=== PATIENT | female | born 1975 | race Caucasian/White ===

== ENCOUNTER 2016-10-31 08:13 | Emergency (ER) | payer OTHER ==
[2016-10-31 08:20] VITALS: BP 119/77
[2016-10-31] MEDS ORDERED: Lidocaine 1% MPF* 2 ML VIAL ONE (08:37)
--- NOTE | 2016-10-31 08:56 | UC ---
Hayes Payan Angela, scribed for IsadoraArsalan neal MD on 10/31/16 at 0826 . Skin Complaint HPI - HPI Summary HPI Summary: In Room Note: This pt is a 41 y/o female presenting to [facility] c/o erythematous chin x3 days, growing in size and becoming more tender in the past days. She notes it started as a pimple 3 days ago. Pt reports her jaw was numb and sore yesterday. She denies fever, chills, cough, cold symptoms. MDs Note: Vital signs are stable, afebrile, 6/10 discomfort from sore on jaw. Visit history: not contributory. No allergies. Nurses Note: Couple days ago chin became red and sore, with small scab-like area in middle. States yesterday jaw was numb from it. - History of Current Complaint Chief Complaint: UCSkin Stated Complaint: SKIN COMPLAINT Hx Obtained From: Patient Hx Last Menstrual Period: mirena Onset/Duration: Lasting Days Pain Intensity: 6 Pain Scale Used: 0-10 Numeric Location: Other - middle of chin Character: Redness Aggravating: Nothing Alleviating: Nothing Associated Signs & Symptoms: Positive: Numbness - and sore jaw. Negative: Fever , Chills, Cough, Rash - Allergy/Home Medications Allergies/Adverse Reactions: Allergies Allergy/AdvReac Type Severity Reaction Status Date / Time No Known Allergies Allergy Verified 10/31/16 08:16 Home Medications: Home Medications Levonorgestrel (Iud) [Mirena IUD] 10/31/16 [History] Review of Systems Constitutional: Negative Skin: Other - redness on chin Eyes: Negative ENT: Other - sore and swollen jaw Respiratory: Negative Cardiovascular: Negative Gastrointestinal: Negative Genitourinary: Negative Motor: Negative Neurovascular: Negative Neurological: Numbness - jaw Psychological: Negative All Other Systems Reviewed And Are Negative: Yes PMH/Surg Hx/FS Hx/Imm Hx Other Endocrine History: DENIES: diabetes Other Cardiovascular History: DENIES: HTN - Surgical History Surgical History: Yes Surgery Procedure, Year, and Place: Kidney stone. appendix. - Family History Known Family History: Negative: Cardiac Disease, Hypertension, Diabetes - Social History Occupation: Employed Full-time - [employer] Alcohol Use: Occasionally Substance Use Type: None Smoking Status (MU): Never Smoked Tobacco Physical Exam Triage Information Reviewed: Yes Vital Signs: Initial Vital Signs Temp 98.7 F 10/31/16 08:17 Pulse 81 10/31/16 08:17 Resp 18 10/31/16 08:17 BP 119/77 10/31/16 08:17 Pulse Ox 100 10/31/16 08:17 Vital Signs Reviewed: Yes - Additional Comments The patient is well-nourished in no acute distress and in no acute pain. The skin is warm and dry. SKIN EXAM OF THE CENTER OF THE CHIN: OBVIOUS CELLULITIS WITH A PIMPLE AT ITS CENTER, MODERATE ERYTHEMA AND 1 CM ROSEBUD AROUND THE PIMPLE WITH DECREASED ERYTHEMA. THERE IS SOME MILD ERYTHEMA OVER THE LEFT MANDIBLE, NOT EXTENDING TO THE ANGLE OF THE JAW. THERE IS SOME SLIGHT LEFT ANTERIOR TENDERNESS UNDER THE CHIN, BUT NO EVIDENCE OF NECK SPACE INFECTION. THE REMAINDER OF THE SKIN EXAM IN WITHIN NORMAL LIMITS. HEENT: The head is normocephalic and atraumatic. The pupils are equal and reactive. The conjunctivae are clear and without drainage. Nares are patent and without drainage. Mouth reveals moist mucous membranes and the throat is without erythema and exudate. The external ears are intact. The ear canals are patent and without drainage. The tympanic membranes are intact. Neck is supple with full range of motion and non-tender. THERE IS NO POSTERIOR OR ANTERIOR ADENOPATHY. Respiratory: Chest is non-tender. Lungs are clear to auscultation and breath sounds are symmetrical and equal. Cardiovascular: Hear is regular rate and rhythm. There is no murmur or rub auscultated. There is no peripheral edema and pulses are symmetrical and equal. Abdomen: The abdomen is soft and non-tender. There are normal bowel sounds heard in all four quadrants and there is no organomegaly palpated. Musculoskeletal: There is no back pain noted. Extremities are non-tender with full range of motion. There is good capillary refill. There is no peripheral edema or calf tenderness elicited. Neurological: Patient is alert and oriented to person, place and time. The patient has symmetrical motor strength in all four extremities. Psychiatric: The patient has an appropriate affect and does not exhibit any anxiety or depression. Course/Dx - Course Course Of Treatment: On skin exam, THERE IS AN OBVIOUS CELLULITIS WITH A PIMPLE AT ITS CENTER, MODERATE ERYTHEMA AND 1 CM ROSEBUD AROUND THE PIMPLE WITH DECREASED ERYTHEMA. THERE IS SOME MILD ERYTHEMA OVER THE LEFT MANDIBLE, NOT EXTENDING TO THE ANGLE OF THE JAW. THERE IS SOME SLIGHT LEFT ANTERIOR TENDERNESS UNDER THE CHIN, BUT NO EVIDENCE OF NECK SPACE INFECTION. THE REMAINDER OF THE SKIN EXAM IN WITHIN NORMAL LIMITS. THERE IS NO POSTERIOR OR ANTERIOR ADENOPATHY. An incision and drainage procedure was performed. The area was prepped and an 11 blade was used to unroof the pustule. A small amount of pus, approximately 2 drops, was removed. The area around the pustule was indurated with no evidence of extending abscess. The pus was cultured. MDM: I discussed with the pt the use of warm, moist heat frequently over the next 2 days. The pt was started on Keflex, pending culture. Patient has been given an antibiotic because of findings on physical examination and health history. The risks and benefits of antibiotic treatment have been discussed and patient has voiced understanding of these risks including the possibility of developing clostridium difficile enterocolitis. Medications have been included in the original chart and reviewed. Normal BP reading and no follow-up instructions required. - Differential Diagnoses - Skin Complaint Differential Diagnoses: Other - Cellulitis of the chin vs abscess - Diagnoses Provider Diagnoses: Localized cellulitis of the chin Procedures - Incision and Drainage Site: middle of the chin Instrument(s): Other - Pustule was unroofed with an 11 blade. A small amount of pus, approximately 2 drops, was removed. The area around the pustule was indurated with no evidence of extending abscess. The pus was cultured. Discharge - Discharge Plan Condition: Stable Disposition: HOME Prescriptions: Cephalexin CAP* [Keflex CAP*] 500 mg PO TID #30 cap MDD 3 Patient Education Materials: Cellulitis (ED) Referrals: No Primary Care Phys,NOPCP [Primary Care Provider] - Additional Instructions: Thank you for helping us improve patient care by filling out the My Point Survey. WE DISCUSSED: 1. You have a skin infection. We will check a culture on the pus that came out to make sure you're on the right antibiotic. 2. Take the pills 3 times a day for 10 days. 3. warm moist heat to area. 4. clean morning and night with hot soapy water and use antibiotic ointment. 5. GO TO ED FOR SPREADING REDNESS, PAIN, SWELLING OR TEMPERATURE. THIS INFECTION SHOULDN'T SPREAD TO YOUR NECK OR UP YOUR FACE. 6. CALL US FOR ANY QUESTIONS OR CONCERNS. RE CHECK IN 2 DAYS IF IT DOESN'T LOOK IF THIS IS IMPROVING OR TOMORROW IF YOU DEVELOP A TEMPERATURE. The documentation as recorded by the Hayes hurley Angela accurately reflects the service I personally performed and the decisions made by me, Arsalan Torres MD.
--- NOTE | 2016-10-31 17:22 | UC ---
Progress - Progress Note Progress Note: PLS CALL PT AND ADVISE THAT PRELIMINARY WOUND CULTURE GREW MRSA. CONTINUE KEFLEX PRESCRIBED AND ALSO START BACTRIM TWICE DAILY X 10 DAYS. ERX SENT TO [facility] - FEI VERA MD
== END 2016-10-31 09:26 | disposition home or self-care (01) ==
LOC: UCEAST 08:13
DX: L03.211 Cellulitis of face (principal); B95.62 Methicillin resistant Staphylococcus aureus infection as the cause of diseases classified elsewhere; R20.0 Anesthesia of skin
CPT/HCPCS: 87070; 87077; 87186; 87205; 87640; 87641; 99212; G0463

== ENCOUNTER 2016-10-31 21:28 | Emergency (ER) | payer OTHER ==
[2016-10-31] MEDS ORDERED: Ibuprofen TAB* 800 MG PO ONE (22:24)
[2016-10-31] MEDS ORDERED: DOXYcycline CAP(*) 100 MG PO ONE (22:24)
[2016-10-31] MEDS ORDERED: Sulfamethox/Trimethoprim DS 800/160* TAB PO ONE (22:29)
--- NOTE | 2016-10-31 22:37 | ED ---
Skin Complaint - HPI Summary HPI Summary: Pt here w/ chin infection and pain x 2-3 days. She was seen at earlier today - small pustule opened by Dr. Potter - d/c collected and returned + MRSA. Pt was notified by phone and bactrim sent to pharmacy but this is closed and pain worse so she came here. Pain in chin is radiating back into ears - she has not taken anything for this yet. Denies fever, chills, nausea, vomiting. Reduced appetite. Denies difficulty breathing or swallowing. - History of Current Complaint Chief Complaint: EDRashSkinAbscess Time Seen by Provider: 10/31/16 22:15 Stated Complaint: DX MRSA ON CHIN Hx Obtained From: Patient Hx Last Menstrual Period: mirena Pain Intensity: 9 - Allergy/Home Medications Allergies/Adverse Reactions: Allergies Allergy/AdvReac Type Severity Reaction Status Date / Time No Known Allergies Allergy Verified 10/31/16 21:30 PMH/Surg Hx/FS Hx/Imm Hx Previously Healthy: Yes Endocrine/Hematology History: Denies: Autoimmune Disease - Surgical History Surgery Procedure, Year, and Place: Kidney stone. appendix. - Immunization History Immunizations Up to Date: Yes Infectious Disease History: Yes Infectious Disease History: Reports: Hx of Known/Suspected MRSA Denies: Traveled Outside the [place] in Last 30 Days - Family History Known Family History: Negative: Cardiac Disease, Hypertension, Diabetes - Social History Alcohol Use: Occasionally Hx Substance Use: No Substance Use Type: Reports: None Hx Tobacco Use: No Smoking Status (MU): Never Smoked Tobacco Review of Systems Constitutional: Negative Eyes: Negative Negative: Photophobia, Blurred Vision, Diplopia, Drainage, Erythema ENT: Other - see HPI Negative: Dental Pain, Sore Throat, Nasal Discharge Cardiovascular: Negative Negative: Chest Pain Respiratory: Negative Negative: Shortness Of Breath Gastrointestinal: Other - see HPI Positive: no symptoms reported Skin: Other - see HPI Positive: Headache Psychological: Normal All Other Systems Reviewed And Are Negative: Yes Physical Exam Triage Information Reviewed: Yes Vital Signs On Initial Exam: Initial Vitals Temp Pulse Resp BP Pulse Ox 99.3 F 89 16 140/87 99 10/31/16 21:32 10/31/16 21:32 10/31/16 21:32 10/31/16 21:32 10/31/16 21:32 Vital Signs Reviewed: Yes Appearance: Positive: Well-Nourished, Ill-Appearing - appears mildly fatigued Skin: Positive: Warm - warm, erythematous, shiny chin with central open superficial wound Head/Face: Positive: Normal Head/Face Inspection Eyes: Positive: Normal, EOMI, Conjunctiva Clear. Negative: Conjunctiva Inflammed, Discharge ENT: Positive: Normal ENT inspection, Hearing grossly normal, Pharynx normal, TMs normal. Negative: Nasal congestion, Nasal drainage, Tonsillar swelling, Tonsillar exudate Neck: Positive: Supple, Nontender, No Lymphadenopathy Respiratory/Lung Sounds: Positive: Clear to Auscultation, Breath Sounds Present Cardiovascular: Positive: Normal Musculoskeletal: Positive: Normal, Strength/ROM Intact Neurological: Positive: Normal, Sensory/Motor Intact, Alert, Oriented to Person Place, Time, CN Intact II-III Psychiatric: Positive: Normal - concerned but calm and cooperative Diagnostics - Vital Signs Vital Signs Temp Pulse Resp BP Pulse Ox 10/31/16 22:19 100.4 F 80 10/31/16 21:32 99.3 F 89 16 140/87 99 - Laboratory Lab Statement: Any lab studies that have been ordered have been reviewed, and results considered in the medical decision making process. Course/Dx - Diagnoses Provider Diagnoses: MRSA cellulitis Discharge - Discharge Plan Condition: Stable Disposition: HOME Patient Education Materials: MRSA (Methicillin-Resistant Staphylococcus Aureus ) (ED), Cellulitis (ED) Referrals: No Primary Care Phys,NOPCP [Primary Care Provider] - Additional Instructions: Wash area 2 x day with anti-bacterial soap and water - rinse well and pat dry - then apply mupirocin ointment You may also apply a warm wet compress followed by mupirocin ointment Complete your antibiotics as directed You may take ibuprofen with food for pain, swelling Follow-up with PCP this week to recheck wound - call Wednesday to schedule an appointment *If you have difficulty swallowing, breathing or opening your jaw, return to ED
[2016-10-31 23:06] VITALS: BP 125/70
[2016-11-01] MEDS ORDERED: Mupirocin 2% OINT* TUBE TOPICAL ONE (22:25)
== END 2016-11-01 00:04 | disposition home or self-care (01) ==
LOC: ED 21:28
DX: L03.211 Cellulitis of face (principal); B95.62 Methicillin resistant Staphylococcus aureus infection as the cause of diseases classified elsewhere
CPT/HCPCS: 99281; A9270-GY

== ENCOUNTER 2016-12-03 10:57 | Emergency (ER) | payer OTHER ==
[2016-12-03 12:59] VITALS: BP 116/65
--- NOTE | 2016-12-03 14:20 | RAD ---
HISTORY: Right ankle pain COMPARISONS: None VIEWS: 3, Frontal, lateral, and oblique views of the right ankle FINDINGS: BONE DENSITY: Normal. BONES: There is no displaced fracture. There are calcaneal enthesophytes. JOINTS: There is no arthropathy. ALIGNMENT: There is no dislocation. SOFT TISSUES: There is circumferential soft tissue swelling. OTHER FINDINGS: None. IMPRESSION: SOFT TISSUE SWELLING. NO ACUTE OSSEOUS INJURY. IF SYMPTOMS PERSIST, RECOMMEND REPEAT IMAGING.
== END 2016-12-03 14:16 | disposition home or self-care (01) ==
LOC: UCEAST 10:57
DX: L03.115 Cellulitis of right lower limb (principal); X58.XXXA Exposure to other specified factors, initial encounter
CPT/HCPCS: 99212; G0463

== ENCOUNTER 2016-12-05 17:42 | Emergency (ER) | payer OTHER ==
[2016-12-05] MEDS ORDERED: Vancomycin(*) 1,000 MG in NS 0.9% 250 ML* 250 ML IVPB ONE (19:44)
--- NOTE | 2016-12-05 20:32 | ED ---
Skin Complaint - HPI Summary HPI Summary: Patient presents to the ED with right medial ankle erythema x 2 days. She notes to pain and swelling prior to the erythema. [facility] with dx of cellulitis and sent home with clindamycin. The area was marked to allow for evaluation of worsening infection. [facility] note: At first, the patient felt like she bruised her ankle but the pain never resolved. She visited her PCP, had an XRAY and US, was given an ankle splint, and referred to physical therapy for Nov . The pain and swelling are still present. The patient rates the pain 7/10 in severity. Symptoms aggravated by ambulation and alleviated by Motrin. Patient reports erythema over right ankle but denies recent injury and calf pain. PMHx includes MRSA in chin 1 month ago. Currently, the patient states the area has worsened with redness, swelling and pain. Pain is worse in the morning and she has been unable to ambulate well and without motrin. She denies fevers, sweats or chills. Hx includes MRSA several months ago on the chin. She denies any bug bites, or open wound which could have caused the cellulitis. Denies trauma or injury to the ankle. 2 xrays taken of the ankle with no signs of osteomyelitis. Last xray 2 days ago. - History of Current Complaint Chief Complaint: EDExtremityLower Time Seen by Provider: 12/05/16 18:33 Stated Complaint: RT ANKLE SWELLING Hx Obtained From: Patient Hx Last Menstrual Period: IUD- doesn't get Onset/Duration: Started Days Ago Skin Exposure Onset/Duration: Days Ago Timing: Constant Onset Severity: Worse Since: - 2 days ago Current Severity: Moderate Pain Intensity: 7 Pain Scale Used: 0-10 Numeric Skin Location: Other: - ankle Character: Swelling, Pain, Redness, Painful Aggravating Symptom(s): Nothing Alleviating Symptom(s): Nothing Associated Signs & Symptoms: Tenderness, Red Streaks, Joint Swelling - Allergy/Home Medications Allergies/Adverse Reactions: Allergies Allergy/AdvReac Type Severity Reaction Status Date / Time No Known Allergies Allergy Verified 10/31/16 21:30 PMH/Surg Hx/FS Hx/Imm Hx Previously Healthy: Yes - Surgical History Surgery Procedure, Year, and Place: Kidney stone. appendix. - Immunization History Hx Pertussis Vaccination: No Immunizations Up to Date: Unable to Obtain/Confirm Infectious Disease History: Yes - Hx of MRSA on chin x 5 months ago Infectious Disease History: Reports: Hx of Known/Suspected MRSA Denies: Traveled Outside the [place] in Last 30 Days - Family History Known Family History: Negative: Cardiac Disease, Hypertension, Diabetes - Social History Occupation: Employed Full-time Lives: With Family Alcohol Use: Occasionally Hx Substance Use: No Substance Use Type: Reports: None Hx Tobacco Use: No Smoking Status (MU): Never Smoked Tobacco Review of Systems Constitutional: Negative Negative: Fever, Chills, Fatigue, Skin Diaphoresis Eyes: Negative Cardiovascular: Negative Respiratory: Negative Negative: Shortness Of Breath, Cough Genitourinary: Negative Positive: no symptoms reported, see HPI Positive: Arthralgia - left medial ankle pain Positive: Rash - erythema and warmth Neurological: Negative All Other Systems Reviewed And Are Negative: Yes Physical Exam Triage Information Reviewed: Yes Vital Signs On Initial Exam: Initial Vitals Temp Pulse Resp BP Pulse Ox 97.6 F 72 20 120/79 100 12/05/16 17:50 12/05/16 17:50 12/05/16 17:50 12/05/16 17:50 12/05/16 17:50 Vital Signs Reviewed: Yes Appearance: Positive: Well-Appearing, Well-Nourished Skin: Positive: Warm, Skin Color Reflects Adequate Perfusion, Other - erythema and warmth to the medial ankle Head/Face: Positive: Normal Head/Face Inspection Eyes: Positive: EOMI, MORENA, Conjunctiva Clear Neck: Positive: Supple, No Lymphadenopathy Respiratory/Lung Sounds: Positive: Clear to Auscultation, Breath Sounds Present Cardiovascular: Positive: Normal, RRR, Pulses are Symmetrical in both Upper and Lower Extremities Musculoskeletal: Positive: Normal, Strength/ROM Intact Neurological: Positive: Speech Normal Psychiatric: Positive: Normal AVPU Assessment: Alert - Jazmyne Coma Scale Coma Scale Total: 15 Diagnostics - Vital Signs Vital Signs Temp Pulse Resp BP Pulse Ox 12/05/16 17:50 97.6 F 72 20 120/79 100 - Laboratory Result Diagrams: 12/05/16 20:33 12/05/16 20:33 Lab Statement: Any lab studies that have been ordered have been reviewed, and results considered in the medical decision making process. Course/Dx - Course Course Of Treatment: Currently, the patient states the area has worsened with redness, swelling and pain. Pain is worse in the morning and she has been unable to ambulate well and without motrin. She denies fevers, sweats or chills. Hx includes MRSA several months ago on the chin. She denies any bug bites, or open wound which could have caused the cellulitis. Denies trauma or injury to the ankle. 2 xrays taken of the ankle with no signs of osteomyelitis. Last xray 2 days ago. Vancomycin 1000mg given in ED. Blood cultures obtained prior. Lab work. New borderlines drawn. She agrees to return if any symptoms become worse. Continue on Clindamycin x 10 days. - Diagnoses Provider Diagnoses: Cellulitis Discharge - Discharge Plan Condition: Stable Disposition: HOME Patient Education Materials: Cellulitis (ED) Referrals: No Primary Care Phys,NOPCP [Primary Care Provider] - Additional Instructions: Please return if symptoms become worse Continue with the clindamycin Will call if medication is not sensitive to the bacteria Ibuprofen 600mg three times daily to help with inflammation If redness is worsening outside the drawn lines - you need to return to the ED.
[2016-12-05 20:49] LABS: Hematocrit 38 % (35-47); Hemoglobin 13.5 g/dl (12.0-16.0); Mean Corpuscular HGB Conc 35 g/dl (31-36); Mean Corpuscular Hemoglobin 31 pg (27-31); Mean Corpuscular Volume 87 fL (80-97); Mean Platelet Volume 8 um3 (7.4-10.4); Red Blood Count 4.37 10^6/ul (4.0-5.4); Red Cell Distribution Width 13 % (10.5-15); White Blood Count 7.1 10^3/ul (3.5-10.8)
[2016-12-05 21:10] LABS: Albumin 4.5 g/dL (3.2-5.2); BUN/Creatinine Ratio 13.1 (8-20); C Reactive Protein 45.88 mg/L (< 5.00); Calcium 9.3 mg/dL (8.6-10.3); EGFR African American 140.4 (>60); EGFR Non-African American 109.2 (>60); Globulin 3.3 g/dL (2-4); Potassium 3.6 mmol/L (3.5-5.0); Total Bilirubin 0.6 mg/dL (0.2-1.0); Total Protein 7.8 g/dL (6.4-8.9)
[2016-12-05 21:45] LABS: Urine Bilirubin Negative (Negative); Urine Glucose Negative (Negative); Urine Nitrite Negative (Negative)
[2016-12-05] MEDS ORDERED: Ketorolac INJ* 30 MG/ML 1 ML VIAL IV PUSH ONE (23:04)
[2016-12-06 02:20] LABS: Erythrocyte Sed Rate 48 mm/Hr (0-14)
[2016-12-06 06:06] VITALS: BP 115/64
== END 2016-12-06 00:10 | disposition home or self-care (01) ==
LOC: ED 17:42
DX: L03.115 Cellulitis of right lower limb (principal); Z87.442 Personal history of urinary calculi; Z86.14 Personal history of Methicillin resistant Staphylococcus aureus infection; Z97.5 Presence of (intrauterine) contraceptive device
CPT/HCPCS: 36415; 80053; 81003; 83605; 84484; 85025; 85652; 86140; 87040; 96365; 96366; 96375; 99283; J1885; J3370

== ENCOUNTER 2016-12-07 10:27 | Inpatient (IN) | payer OTHER ==
--- NOTE | 2016-12-07 12:04 | RAD ---
INDICATION: Right leg cellulitis erythema and swelling. COMPARISON: There are no prior studies available for comparison. TECHNIQUE: Multiple real-time, color flow and Doppler tracings of the right lower extremity were obtained. FINDINGS: The common femoral, femoral, profunda femoral and popliteal veins all demonstrate normal compressibility, augmentation with compression and phasic response with respiration. The posterior tibial and peroneal veins demonstrate normal compressibility and augmentation with compression. IMPRESSION: NO EVIDENCE FOR DEEP VENOUS THROMBOSIS.
[2016-12-07] MEDS ORDERED: Iohexol 300* (CONTRAST) 10 ML SDV IV ONE (12:35)
--- NOTE | 2016-12-07 12:41 | ED ---
Skin Complaint - HPI Summary HPI Summary: Patient is a 41yo F who presents to the ED with right medial ankle pain and swelling. She was seen here 2 days ago by myself with concern of worsening erythema and streaking to the leg potentially failing PO antibiotics. She was noted to have had only 6 doses (1 1/2 days) of clindamycin which she was given at [facility]. The erythema to the leg seemed to go outside the lines drawn on by [facility] with some warmth. She had also had an xrays which was negative for any acute findings. She was given vancomycin in the ED and toradol. She was encouraged to return to the ED if any symptoms become worse. Note from 2 days prior: Patient presents to the ED with right medial ankle erythema x 2 days. She notes to pain and swelling prior to the erythema. She was seen at [facility] 2 days ago with dx of cellulitis and sent home with clindamycin. The area was marked to allow for evaluation of worsening infection. [facility] note: At first, the patient felt like she bruised her ankle but the pain never resolved. She visited her PCP, had an XRAY and US, was given an ankle splint, and referred to physical therapy for Dec 29. The pain and swelling are still present. The patient rates the pain 7/10 in severity. Symptoms aggravated by ambulation and alleviated by Motrin. Patient reports erythema over right ankle but denies recent injury and calf pain. PMHx includes MRSA in chin 1 month ago. Currently, the patient states the area has worsened with redness, swelling and pain. Pain is worse in the morning and she has been unable to ambulate well and without motrin. She denies fevers, sweats or chills. Hx includes MRSA several months ago on the chin. She denies any bug bites, or open wound which could have caused the cellulitis. Denies trauma or injury to the ankle. 2 xrays taken of the ankle with no signs of osteomyelitis. Last xray 2 days ago. TODAY: She returns today with improvement of the erythema and warmth. However , now states the lateral ankle is with worsening swelling and exquisite tenderness to light palpation. She is able to ambulate, but with pain. Continues to deny any known injury or trauma. Denies fevers, sweats or chills. Hx of MRSA. Denies diabetes or venous stasis. Denies PAD, PVD. - History of Current Complaint Chief Complaint: EDExtremityLower Time Seen by Provider: 12/07/16 10:29 Stated Complaint: RT ANKLE COMPLAINT Hx Obtained From: Patient Hx Last Menstrual Period: IUD- doesn't get Onset/Duration: Started Days Ago Skin Exposure Onset/Duration: Days Ago Timing: Constant Onset Severity: Moderate Current Severity: Mild Pain Intensity: 7 Pain Scale Used: 0-10 Numeric Skin Location: Discrete - medial ankle erythema with lateral ankle swelling Character: Swelling, Pain, Redness, Painful Aggravating Symptom(s): Nothing, Touch Associated Signs & Symptoms: Tenderness, Red Streaks, Joint Swelling - Allergy/Home Medications Allergies/Adverse Reactions: Allergies Allergy/AdvReac Type Severity Reaction Status Date / Time No Known Allergies Allergy Verified 10/31/16 21:30 Home Medications: Home Medications Ibuprofen [Motrin Ib] 600 mg PO Q6HR PRN 12/07/16 [History Confirmed 12/07/16] Levonorgestrel (IUD) (NF) [Mirena (NF)] 20 mcg IU ONCE 12/07/16 [History Confirmed 12/07/16] PMH/Surg Hx/FS Hx/Imm Hx Previously Healthy: Yes - Surgical History Surgery Procedure, Year, and Place: appendix. - Immunization History Hx Pertussis Vaccination: No Immunizations Up to Date: Unable to Obtain/Confirm Infectious Disease History: Yes Infectious Disease History: Reports: Hx of Known/Suspected MRSA Denies: Traveled Outside the [place] in Last 30 Days - Family History Known Family History: Negative: Cardiac Disease, Hypertension, Diabetes - Social History Occupation: Employed Full-time Lives: With Family Alcohol Use: Occasionally Hx Substance Use: No Substance Use Type: Reports: None Hx Tobacco Use: No Smoking Status (MU): Never Smoked Tobacco Review of Systems - ROS Summary Review of Systems Summary: Constitutional: The patient denies fever, BERMUDEZ. HEENT: Head: The patient denies headaches or dizziness. Eyes: The patient denies diplopia, blurry vision, eye pain, eye discharge, photophobia. Throat: The patient denies sore throats or hoarseness. Cardiovascular: The patient denies chest pain, palpitations, syncope, night cramps, or orthostasis. Respiratory: The patient denies cough, sputum production, hemoptysis, dyspnea, wheezing. Gastrointestinal: The patient denies odynophagia, dysphagia, hematemesis, melenemesis. Denies abdominal pain, nausea or vomiting. Denies constipation or diarrhea. Genitourinary: Patient denies dysuria, hematuria, or pyuria. Patient denies back pain. Denies vaginal discharge, vaginal bleeding. Denies other urinary symptoms. Endocrine: The patient denies polydipsia, polyuria, or polyphagia. Muscles: The patient denies myalgia, strain or weakness. Joints: The patient endorses ankle joint pain most prominent to the medial ankle. Neurologic: The patient denies headache, loss of consciousness, or seizure. Dermatologic: The patient notes to medial right ankle erythema, swelling an warmth. Constitutional: Negative Negative: Fever, Chills, Fatigue Eyes: Negative Positive: Palpitations Respiratory: Negative Positive: no symptoms reported, see HPI Positive: Arthralgia - medial ankle erythema with lateral ankle swelling Positive: Other - erythema Neurological: Negative All Other Systems Reviewed And Are Negative: Yes Physical Exam - Summary Physical Exam Summary: Appearance: WDW, comfortable, pleasant, alert Skin: Soft dry skin, no lesions. Nailbeds pink with no cyanosis or clubbing. No petechia noted. Eyes: MORENA, EOMI, Conjunctiva pink with no redness or exudates. Mouth: Dentition without lesions. Moist mucosa Neck: Full range of motion. Palpable thyroid. Trachea at midline. No lymphadenopathy. Pulm: Chest symmetrical expansion. No deformities on posterior chest wall. Lungs clear to auscultation and percussion, without adventitious sounds. CV: No JVD. No deformities on anterior chest wall. Heart sounds. RRR, Normal S1 and single S2. No S3, S4, rubs, or murmurs. Carotids 2+ bilaterally without bruits. . exam not performed Musculoskeletal: Limited ROM of flexion and extension of the right ankle. Palpation of the distal tibia with exquisite tenderness and loculation noted. Crepitus. Neuro: Motor strength is 5/5 in upper and lower extremities bilaterally. A&OX3 Psych: Logical, coherent Triage Information Reviewed: Yes Vital Signs On Initial Exam: Initial Vitals Temp Pulse Resp BP Pulse Ox 98 F 76 18 111/58 100 12/07/16 10:52 12/07/16 10:52 12/07/16 10:52 12/07/16 10:52 12/07/16 10:52 Vital Signs Reviewed: Yes Appearance: Positive: Well-Appearing, Well-Nourished Skin: Positive: Warm, Skin Color Reflects Adequate Perfusion, Other - medial ankle erythema with lateral ankle swelling Head/Face: Positive: Normal Head/Face Inspection Neck: Positive: Supple, No Lymphadenopathy Respiratory/Lung Sounds: Positive: Clear to Auscultation, Breath Sounds Present Cardiovascular: Positive: Normal, RRR, Pulses are Symmetrical in both Upper and Lower Extremities Musculoskeletal: Positive: Pain @ - medial ankle erythema with lateral ankle swelling; ROM limited d/t pain. Palpation with exquisite tenderness to the medial distal tibia with mild crepitus noted. Neurological: Positive: Speech Normal Psychiatric: Positive: Normal - Jazmyne Coma Scale Coma Scale Total: 15 Diagnostics - Vital Signs Vital Signs Temp Pulse Resp BP Pulse Ox 12/07/16 10:52 98 F 76 18 111/58 100 - Laboratory Lab Statement: Any lab studies that have been ordered have been reviewed, and results considered in the medical decision making process. Course/Dx - Course Course Of Treatment: Patient presents with medial ankle erythema with lateral ankle swelling. Swelling has worsened x 2 days since ED discharge. However, now with worsening swelling and tenderness to the lateral right ankle. Denies fevers, sweats and chills. Denies other symptoms. No trauma to the area. Cellulitis is improving, however - will evaluate for other pathology. medial ankle erythema with lateral ankle swelling; ROM limited d/t pain. Palpation with exquisite tenderness to the medial distal tibia with mild crepitus noted. IMPRESSION: OSTEOMYELITIS OF THE MEDIAL TIBIAL METADIAPHYSIS WITH ASSOCIATED. SUBPERIOSTEAL ABSCESS. DIFFUSE SUBCUTANEOUS EDEMA IS CONSISTENT WITH CELLULITIC RESPONSE. Called Dr. Fleming who agrees to come see patient. She is given Vancomycin in ED. 1500mg. Dr. Fleming recommended MRI. MRI: IMPRESSION: OSTEOMYELITIS OF THE MEDIAL TIBIAL METADIAPHYSIS WITH ASSOCIATED. SUBPERIOSTEAL ABSCESS. DIFFUSE SUBCUTANEOUS EDEMA IS CONSISTENT WITH CELLULITIC RESPONSE. Dr. Fleming to see patient at 5pm. He agrees to take to the OR. Patient made aware and is OK with plan. She is discharged to OR at 5:35pm. - Diagnoses Provider Diagnoses: Osteomyelitis - Physician Notifications Instructed by Provider To: MD Will See In ED - Dr. Fleming Discharge - Discharge Plan Condition: Stable Disposition: ADMITTED TO [facility] Referrals: No Primary Care Phys,NOPCP [Primary Care Provider] -
--- NOTE | 2016-12-07 14:26 | RAD ---
INDICATION: Lower extremity soft tissue swelling COMPARISON: Right ankle December 03, 2016; duplex interrogation right lower extremity December 07, 2016 TECHNIQUE: Axial scans are obtained to the mid tibial shaft through the foot. Coronal and sagittal reconstructed images were acquired examination was performed following injection of 100 mL Omnipaque 300 FINDINGS: There is a small bony erosive change about the medial tibial metadiaphysis consistent with osteomyelitis. Immediately adjacent there is soft tissue enhancement with a localized fluid collection measuring 16.3 x 0.6 cm. This is consistent with a subperiosteal abscess. There is additional diffuse edematous change consistent with cellulitic response. This is most prominent along the lateral leg at the level of the distal fibula. There are no additional significant bony or soft tissue findings. IMPRESSION: OSTEOMYELITIS OF THE MEDIAL TIBIAL METADIAPHYSIS WITH ASSOCIATED SUBPERIOSTEAL ABSCESS. DIFFUSE SUBCUTANEOUS EDEMA IS CONSISTENT WITH CELLULITIC RESPONSE.
[2016-12-07] MEDS ORDERED: Vancomycin(*) 1,500 MG in NS 0.9% 250 ML* 250 ML IVPB ONE (15:14)
--- NOTE | 2016-12-07 16:56 | RAD ---
Indication: Osteomyelitis. Axial T1, STIR, sagittal T1, STIR, coronal T1, STIR images were obtained. Soft tissue edema is noted in the distal metaphysis of the medial tibia. There is erosion of the cortex with likely cortical abscess measuring approximately 8 mm in greatest dimension. Soft tissue edema and likely. Intramuscular fluid collection may also represent an abscess. Adjacent bone marrow edema is noted. The remainder of the tibia and fibula and talus are otherwise unremarkable. IMPRESSION: 8mm cortical abscess with intramuscular fluid collection which May also represent an abscess. Adjacent bone marrow edema is noted in the tibia. This is consistent with osteomyelitis.
[2016-12-07] MEDS ORDERED: Sodium Citrate/Citric Acid* 15 ML UDC ONE (17:38)
[2016-12-07] MEDS ORDERED: Propofol* 10 MG/ML 20 ML BTL IV PUSH ONE (17:50)
[2016-12-07] MEDS ORDERED: fentaNYL* 50 MCG/ML 2 ML VIAL (100 MCG VIAL) ONE ×3 (17:50→19:19)
[2016-12-07] MEDS ORDERED: Lidocaine 2% PF * 5 ML VIAL ONE (17:50)
[2016-12-07] MEDS ORDERED: Morphine INJ* 2 MG/ML 1 ML SYRINGE (TWO MG - NEW SYRINGE VERSION) IV PRN (18:27)
[2016-12-07] MEDS ORDERED: Ondansetron INJ* 2 MG/ML VIAL IV PRN (18:27)
[2016-12-07] MEDS ORDERED: diPHENhydraMINE IV* 50 MG/ML 1 ml VIAL (BENADRYL) IV PRN (18:27)
[2016-12-07] MEDS ORDERED: Bupivacaine 0.5% SDV PF* 30 ML VIAL ONE (18:30)
[2016-12-07] MEDS ORDERED: Ketorolac INJ* 30 MG/ML 1 ML VIAL ONE (18:52)
[2016-12-07] MEDS: fentaNYL* 50 MCG/ML 2 ML VIAL (100 MCG VIAL) IV PRN ×4 (18:53→19:33)
[2016-12-07] MEDS ORDERED: Ketorolac INJ* 30 MG/ML 1 ML VIAL IV PRN (18:55)
[2016-12-07] MEDS ORDERED: Levonorgestrel (IUD) (NF) 20 MCG/24 HR IUD IU SCH (19:00)
[2016-12-07] MEDS ORDERED: oxyCODONE TAB* 5 MG TAB ONE (19:18)
[2016-12-07] MEDS: oxyCODONE TAB* 5 MG TAB PO PRN (19:20)
[2016-12-07] MEDS ORDERED: Vancomycin per Pharmacy* NOTE FOLLOW UP PRN (20:48)
[2016-12-07] MEDS: Vancomycin(*) 1,000 MG in NS 0.9% 250 ML* 250 ML IVPB SCH (22:24)
--- NOTE | 2016-12-08 01:56 | CONS ---
ORTHOPEDIC SURGERY CONSULTATION: DATE OF CONSULT: 12/07/16 CONSULTING SERVICE: Orthopedic Surgery. REQUESTING SERVICE: Emergency Room. CHIEF COMPLAINT: Right medial ankle pain and swelling. HISTORY OF PRESENT ILLNESS: This is a 41-year-old woman who comes into the ER with medial ankle pain and swelling. She reports that this has been going on for a few weeks now, but has gotten worse. She came into the ER 2 days ago and was placed on p.o. antibiotics, but noticed that it continued to worsen, so she came back in again today. This was further imaged with a CT scan and MRI which did show a distal medial subperiosteal abscess involving the bone, so Orthopedics was consulted. PAST MEDICAL HISTORY: She does have a history of a MRSA abscess on her chin 1 month ago. Otherwise, she reports she is healthy. PAST SURGICAL HISTORY: Appendectomy. HOME MEDICATIONS: IUD. ALLERGIES: No known drug allergies. PHYSICAL EXAM: She is a well-appearing woman in no apparent distress. Examination of her right lower extremity revealed erythema about the distal medial leg. Knee skin is intact. There is focal tenderness to palpation in this area. She has full painless range of motion in her hip, knee and ankle. She is able to flex and extend all of her toes. Sensation is intact to light touch throughout the foot. She has a strong palpable DP pulse. DIAGNOSTIC STUDIES: Imaging was reviewed and does show a distal medial tibial subperiosteal abscess with evidence of some osteomyelitis. IMPRESSION AND PLAN: A healthy 41-year-old female with right leg distal medial infection including a subperiosteal abscess and likely osteomyelitis. Given this has worsened on antibiotics, as well as the abscess nature of this, we did discuss surgical I and D. The risks and benefits were explained at length with her and after this discussion she decided that she would like to move forward with an I and D. She will be taken to the operating room this evening for I and D in the OR. [id number]/[facility] #: [id number] DENIS
[2016-12-08] MEDS: oxyCODONE TAB* 5 MG TAB PO PRN ×3 (05:12→21:08)
[2016-12-08] MEDS: Vancomycin(*) 1,000 MG in NS 0.9% 250 ML* 250 ML IVPB SCH ×4 (05:12→23:01)
[2016-12-08 06:46] LABS: Hematocrit 33 % (35-47); Hemoglobin 11.4 g/dl (12.0-16.0); Mean Corpuscular HGB Conc 35 g/dl (31-36); Mean Corpuscular Hemoglobin 30 pg (27-31); Mean Corpuscular Volume 87 fL (80-97); Mean Platelet Volume 8 um3 (7.4-10.4); Red Blood Count 3.78 10^6/ul (4.0-5.4); Red Cell Distribution Width 13 % (10.5-15); White Blood Count 4.6 10^3/ul (3.5-10.8)
[2016-12-08 07:00] LABS: BUN/Creatinine Ratio 25.4 (8-20); C Reactive Protein 10.99 mg/L (< 5.00); Calcium 8.3 mg/dL (8.6-10.3); EGFR African American 135.3 (>60); EGFR Non-African American 105.2 (>60); Potassium 3.6 mmol/L (3.5-5.0)
[2016-12-08] MEDS: Enoxaparin(*) 40 MG/0.4 ML SYR SUBCUT SCH (09:12)
[2016-12-08 09:14] LABS: Erythrocyte Sed Rate 37 mm/Hr (0-14)
[2016-12-08] MEDS: Ibuprofen TAB* 200 MG PO PRN (09:32)
[2016-12-08] MEDS ORDERED: Vancomycin Trough Check NOTE FOLLOW UP ONE (16:30)
--- NOTE | 2016-12-08 22:10 | CONS ---
CONSULTATION REPORT: DATE OF CONSULT: 12/08/16 REQUESTING PROVIDER: Dr. Ott. CONSULTING SERVICE: Infectious Disease. REASON FOR CONSULT: MRSA bone abscess. IMPRESSION: 1. Subperiosteal abscess of a medial tibial metaphysis as well as osteomyelitis. This is probably a hematogenous infection given there is is no overlying ulcer or puncture injury. 2. MRSA chin abscess about a month ago, no other recurrent staphylococcal or other infection. RECOMMENDATIONS: 1. Agree with vancomycin, goal trough 15 to 20. Given osteomyelitis, we will plan on 6 to 8 weeks of IV antibiotics. Maybe we will shorten the duration of IV and give her some oral antibiotic. 2. Blood cultures. HISTORY OF PRESENT ILLNESS: This is a 41-year-old woman admitted with right leg pain. It has been going on for a couple of weeks and initially was felt to be a sprain, did not get better. She was diagnosed with cellulitis, prescribed clindamycin, but her pain progressed, came to the hospital yesterday, seen in the emergency room. White count was normal. She was afebrile, CRP was 11. She had a CT scan that showed the subperiosteal abscess and a soft tissue abscess in the muscle. There was no overlying cellulitis as well. She was started on vancomycin. Dr. Ott took her to the operative room and debrided the bone and abscess. Specimen was sent that showed 3+ neutrophils, 2+ gram- positive cocci that is growing Staph aureus, positive for MRSA. Her pain is about the same. She has not had fevers, chills or sweats. She had a chin abscess to the MRSA about a month ago and no other skin or soft tissue infections over the years, has not been hospitalized for infection in the past. Otherwise, has been well. PAST MEDICAL HISTORY: Status post appendectomy. ALLERGIES: No known drug allergies. MEDICATIONS: 1. Enoxaparin. 2. Ibuprofen. 3. Vancomycin 1 g IV every 6 hours. 4. Oxycodone. SOCIAL HISTORY: Lives in [place] with her boyfriend. No travel. No sick contacts. FAMILY HISTORY: No recurrent infections. REVIEW OF SYSTEMS: All negative 14-point review of systems except as noted above. PHYSICAL EXAM: Vital Signs: Temperature is 36.6, heart rate 75, respiratory rate 18, blood pressure 111/70, O2 sat 98% on room air. In general, she is awake, not in distress. Neurologic: She is oriented x3. Follows all commands. HEENT: There is no conjunctival hemorrhage. Oropharynx without lesions. Heart has regular rate and rhythm without murmurs, rubs, or gallops. Lungs are clear to auscultation bilaterally. Abdomen: Soft, nontender, nondistended. There are bowel sounds present. Skin: There is no rash or splinter hemorrhage. Musculoskeletal: Right ankle is bandaged. LABORATORY DATA: Creatinine 0.6. White blood cell count 4.6, hemoglobin 11.4, platelets 222. Please see impressions and recommendations outlined above. Thank you for asking me to see, Ms. Melgoza, in consultation. [id number]/[facility] #: [id number] [facility] HOSPITALJaron
--- NOTE | 2016-12-09 04:14 | OP ---
DATE OF OPERATION: 12/07/16 - ROOM #337 DATE OF : 79 SURGEON: Eric Ott MD FLOORS BUFFER: None. ANESTHESIOLOGIST: Hussein Gray DO ANESTHESIA: General endotracheal anesthesia. PRE-OP DIAGNOSES: 1. Right Tibial subperiosteal abscess. 2. Right Tibial osteomyelitis. POST-OP DIAGNOSES: 1. Right Tibial subperiosteal abscess. 2. Right Tibial osteomyelitis. OPERATIVE PROCEDURE: 1. Incision and drainage of right tibial bone abscess and osteomyelitis. 2. Deep bone biopsy of right tibia. IMPLANTS: None. TOURNIQUET TIME: None. SPECIMENS: Culture swab x2 sent to microbiology, deep tibial bone biopsy sent to pathology. ESTIMATED BLOOD LOSS: 50 cc. COMPLICATIONS: None. STATUS: Stable from the operating room to the recovery room and then back to the hospital floor. INDICATIONS FOR PROCEDURE: Elana is a healthy 41-year-old woman with worsening right distal medial leg pain. She was found to have a subperiosteal abscess on the distal medial tibia as well as osteomyelitis. This was worsening on antibiotics. This was confirmed on CT and MRI imaging. Therefore we brought her to the operating room for an I and D of the abscess as well as a bone biopsy to help guide the antibiotic treatment. Both operative and nonoperative treatment alternatives were reviewed, further the nature and risks of surgery were reviewed in careful detail in the emergency room as well as the preoperative holding area. Our discussions regarding the risk of surgery included but were not limited to persistent infection, recurrent wound problems , nerve injury, neuroma, RSD, persistent symptoms, fracture of the tibia and even the remote chance of a catastrophic complication including loss of limb. DESCRIPTION OF PROCEDURE: The patient was seen in the preoperative holding unit and informed consent was obtained. The appropriate extremity was marked. The patient was brought to the operating room and carefully positioned on the operating room table. Anesthesia was induced, all bony prominences were padded with great care. A ChloraPrep scrub followed by a drape in the standard sterile fashion was performed. A surgical safety pause was then conducted in which we confirmed the appropriate patient, extremity, planned procedure, availability of equipment, indication, and administration of antibiotics and DVT prophylaxis in the form of a compression boot on the nonsurgical extremity. I began by marking out an incision based on the preoperative imaging over the distal medial tibia. The skin was incised about 6cm and dissection was made down to the level of the periosteum. At this point there was an obvious abscess underlying the periosteum, which was incised. Two sets of culture swabs were sent from this. There was saritha purulence. Unhealthy appearing tissue including periosteum was excised. Using a rongeur a deep bone biopsy of the tibial cancellous bone was performed and sent to pathology. Any remaining nonviable tissue and bone was then removed and the area was irrigated with 9 L of normal saline. After this all remaining tissue appeared healthy and viable. A Sebring drain was then placed into the wound and then the wound was closed in a layered fashion with 3-0 Monocryl and 3-0 nylon. The patient then received dry sterile dressing and was then awakened from anesthesia and transferred to the recovery room in stable condition. Complications none. Needle and sponge counts correct at the end of the case. ATTESTATION: I attest that I was present and scrubbed and performed the entire procedure myself. POSTOPERATIVE PLAN: We will get Elana in air cast boost at which time she will start to put some weight on the right lower extremity. Infectious Diseases was consulted and will help us with antibiotic care. [id number]/[facility] #: [id number] DENIS
[2016-12-09] MEDS: Vancomycin(*) 1,000 MG in NS 0.9% 250 ML* 250 ML IVPB SCH ×4 (04:54→23:16)
[2016-12-09] MEDS: oxyCODONE TAB* 5 MG TAB PO PRN ×3 (09:19→21:48)
[2016-12-09] MEDS: Enoxaparin(*) 40 MG/0.4 ML SYR SUBCUT SCH (09:19)
--- NOTE | 2016-12-09 09:31 | PN ---
Progress Note - Progress Note Date of Service: 12/09/16 SOAP: Subjective: CC: tibia infection HPI: 41 year old woman with R tibia bone abscess s/p I&D, pain improving, no fever rash or diarrhea. No problems with IV. Objective: [] Vital Signs Temp 36.8 C 12/09/16 03:44 Pulse 67 12/09/16 03:44 Resp 16 12/09/16 09:19 BP 101/63 12/09/16 03:44 Pulse Ox 99 12/09/16 03:44 Intake & Output 12/08/16 12/09/16 12/09/16 18:59 06:59 18:59 Intake Total 1900 860 Output Total 1400 800 Balance 500 60 Intake: IVPB 1050 ABX - VANCOMYCIN 780 Oral 850 860 Output: Urine 1400 800 Gen:Awake, no distress Heart:RRR no murmur Abd:+BS NTND Skin: no rash MSK: R leg bandaged Laboratory Results - last 24 hr 12/08/16 16:55 Vancomycin Trough 17.3 Microbiology 12/07/16 18:14 Skin and Soft Tissue MRSA/MSSA (PCR - Final Leg Right Mrsa Positive S.aureus Positive Gram Stain - Final Wound Culture - Preliminary Staphylococcus Aureus 12/07/16 18:17 Anaerobic Culture - Preliminary Misc Source (See Comment) - Abscess No Growth Day 1 12/07/16 18:17 Gram Stain - Final Leg Right Wound Culture - Preliminary No Growth Day 1 12/07/16 18:14 Anaerobic Culture - Preliminary Misc Source (See Comment) - Abscess No Growth Day 1 Assessment: 1. MRSA right tibia abscess s/p I&D and acute osteomyelitis of same; hematogenous 2. hx MRSA soft tissue abscess Plan: 1. PICC, vancomycin goal tr 15-20 for 6 weeks; weekly cbc, cmp, crp, vanco trough Discussed with Dr Fleming 35 minutes floor time >50% spent in counseling regarding next steps in antibiotic treatment and monitoring.
--- NOTE | 2016-12-09 10:59 | PN ---
Progress Note - Progress Note Date of Service: 12/09/16 SOAP: Subjective:Pain and swelling improving. No complaints [] Objective: Temp Pulse Resp BP Pulse Ox 98.3 F 67 16 101/63 99 12/09/16 03:44 12/09/16 03:44 12/09/16 09:19 12/09/16 03:44 12/09/16 03:44 Laboratory Results - last 24 hr 12/08/16 16:55 Vancomycin Trough 17.3 incision c/d/i Improved erythema, swelling and tenderness Painless AROM knee, ankle and toes SILT throughout foot +TA, EHL FHL +DP [] Assessment: Doing well POD2 from right tibial abscess and osteo I&D and bone biopsy [] Plan: continue abx per ID Can start Weight bearing in boot - discussed slightly increased risk of fracture so she will wear boot and limit her activities aspirin 325 daily for DVT prophylaxis and pneumoboots in house []
[2016-12-09] MEDS ORDERED: Fluconazole 150 MG (NF) 150 MG TAB PO ONE (12:31)
[2016-12-09] MEDS ORDERED: Fluconazole 100 MG TAB* TAB PO ONE ×2 (13:00→15:00)
[2016-12-09] MEDS: Ibuprofen TAB* 200 MG PO PRN (13:46)
[2016-12-10] MEDS: Vancomycin(*) 1,000 MG in NS 0.9% 250 ML* 250 ML IVPB SCH ×4 (05:18→23:01)
[2016-12-10] MEDS: Enoxaparin(*) 40 MG/0.4 ML SYR SUBCUT SCH (09:15)
--- NOTE | 2016-12-10 15:06 | PN ---
Progress Note - Progress Note Date of Service: 12/10/16 SOAP: Subjective: []Patient seen at bedside, she is doing well. PICC line placement on the floor was unsuccessful and she will be required to go to IR for PICC placement later this afternoon. She still has symptoms of yeast infection but there is some improvement after the diflucan medication given yesterday. Objective: [] Vital Signs Temp 97.4 F 12/10/16 11:41 Pulse 73 12/10/16 11:41 Resp 16 12/10/16 11:41 BP 111/73 12/10/16 11:41 Pulse Ox 98 12/10/16 11:41 Intake & Output 12/09/16 12/10/16 12/10/16 18:59 06:59 18:59 Intake Total 3000 1679 620 Output Total 800 1750 2725 Balance 2200 -71 -2105 Intake: IV Fluids 1350 564 LR 1350 564 IVPB 1050 285 ABX - VANCOMYCIN 1050 285 LR 0 Oral 600 830 620 Output: Urine 800 1750 2725 Other: # Bowel Movements 0 Dressing on right LE is dry and intact neuro intact Assessment: []s/p I&D osteomyelitis right tibia POD #3 Vaginal yeast infection Plan: []IR for PICC later this afternoon/evening IV Vanco Probable discharge home tomorrow morning Will consider 2nd dose of diflucan if still symptomatic
[2016-12-10] MEDS: Ibuprofen TAB* 200 MG PO PRN (23:06)
[2016-12-11] MEDS: Vancomycin(*) 1,000 MG in NS 0.9% 250 ML* 250 ML IVPB SCH ×2 (05:19→12:00)
[2016-12-11 05:43] LABS: EGFR African American 168.8 (>60); EGFR Non-African American 131.3 (>60)
[2016-12-11] MEDS: Enoxaparin(*) 40 MG/0.4 ML SYR SUBCUT SCH (09:09)
--- NOTE | 2016-12-11 10:12 | PN ---
Progress Note - Progress Note Date of Service: 12/11/16 SOAP: Subjective: []Patient seen at bedside. Reports feeling well today. PICC line was placed by IR in RUE yesterday, tolerated procedure well. Pain is well controlled with ibuprofen alone. Reports a significant decrease in vaginal itching related to yeast infection. Objective: [] Vital Signs Temp 97.4 F 12/11/16 03:29 Pulse 63 12/11/16 03:33 Resp 16 12/11/16 03:29 BP 97/61 12/11/16 03:33 Pulse Ox 99 12/11/16 03:29 Intake & Output 12/10/16 12/11/16 12/11/16 18:59 06:59 18:59 Intake Total 1310 360 380 Output Total 2725 1100 Balance -1415 -740 380 Intake: IV Fluids 420 LR 420 IVPB 270 ABX - VANCOMYCIN 270 Oral 620 360 380 Output: Urine 2725 1100 Other: # Bowel Movements 0 Laboratory Last Values WBC 4.6 10^3/ul (3.5-10.8) 12/08/16 06:33 RBC 3.78 10^6/ul (4.0-5.4) L 12/08/16 06:33 Hgb 11.4 g/dl (12.0-16.0) L 12/08/16 06:33 Hct 33 % (35-47) L 12/08/16 06:33 MCV 87 fL (80-97) 12/08/16 06:33 MCH 30 pg (27-31) 12/08/16 06:33 MCHC 35 g/dl (31-36) 12/08/16 06:33 RDW 13 % (10.5-15) 12/08/16 06:33 Plt Count 222 10^3/ul (150-450) 12/08/16 06:33 MPV 8 um3 (7.4-10.4) 12/08/16 06:33 Neut % (Auto) 55.3 % (38-83) 12/08/16 06:33 Lymph % (Auto) 35.5 % (25-47) 12/08/16 06:33 Bleckley % (Auto) 6.7 % (1-9) 12/08/16 06:33 Eos % (Auto) 2.0 % (0-6) 12/08/16 06:33 Baso % (Auto) 0.5 % (0-2) 12/08/16 06:33 Absolute Neuts (auto) 2.6 10^3/ul (1.5-7.7) 12/08/16 06:33 Absolute Lymphs (auto) 1.6 10^3/ul (1.0-4.8) 12/08/16 06:33 Absolute Monos (auto) 0.3 10^3/ul (0-0.8) 12/08/16 06:33 Absolute Eos (auto) 0.1 10^3/ul (0-0.6) 12/08/16 06:33 Absolute Basos (auto) 0 10^3/ul (0-0.2) 12/08/16 06:33 Absolute Nucleated RBC 0 10^3/ul 12/08/16 06:33 Nucleated RBC % 0 12/08/16 06:33 ESR 37 mm/Hr (0-14) H 12/08/16 06:33 Sodium 135 mmol/L (133-145) 12/08/16 06:34 Potassium 3.6 mmol/L (3.5-5.0) 12/08/16 06:34 Chloride 103 mmol/L (101-111) 12/08/16 06:34 Carbon Dioxide 28 mmol/L (22-32) 12/08/16 06:34 Anion Gap 4 mmol/L (2-11) 12/08/16 06:34 BUN 14 mg/dL (6-24) 12/11/16 05:15 Creatinine 0.52 mg/dL (0.51-0.95) 12/11/16 05:15 Est GFR ( Amer) 168.8 (>60) 12/11/16 05:15 Est GFR (Non-Af Amer) 131.3 (>60) 12/11/16 05:15 BUN/Creatinine Ratio 25.4 (8-20) H 12/08/16 06:34 Glucose 89 mg/dL (70-100) 12/08/16 06:34 Calcium 8.3 mg/dL (8.6-10.3) L 12/08/16 06:34 C-Reactive Protein 10.99 mg/L (< 5.00) H 12/08/16 06:34 Vancomycin Trough 17.3 mcg/mL 12/08/16 16:55 General: lying in bed. appears well in no acute distress RLE: Wound appears clean, dry, intact with no surrounding erythema. Sensation intact distally. DF/PF intact. No significant edema. Assessment: []Right tibial abscess, osteo I&D, bone biopsy POD 3 Plan: []Continue antibiotic per I&D, to be continued by home infusion with visiting nurses Weight bearing as tolerated in boot Anticoagulation: ASA 325 mg BID Pain: Ibuprofen PRN Expected discharge to home today
[2016-12-11] MEDS ORDERED: Vancomycin Trough Check NOTE FOLLOW UP ONE (10:30)
[2016-12-11 11:31] VITALS: BP 141/83
--- NOTE | 2016-12-11 15:53 | RAD ---
CPT II Codes: 6045F INDICATION: Right ankle osteomyelitis COMPARISON: None. FLUOROSCOPY TIME: 51 seconds TECHNIQUE: The benefits and risks of the procedure were explained to the patient. The patient consented to the exam. A timeout was performed before beginning the procedure. Ultrasound of the right arm demonstrates a patent brachial that was selected for PICC line access. Sterile precautions were employed, including standard sterile prep and drape, utilization of sterile gloves, gown, cap and mask. The skin and subcutaneous tissue overlying the vein was anesthetized with 1% lidocaine injected locally. Utilizing sonographic guidance the vein was accessed with a 21-gauge needle. An ultrasound image was recorded. A guidewire was advanced into the superior vena cava under fluoroscopic guidance. The peel-away sheath was advanced over the wire into the lumen of the vein. A 4-Hebrew single lumen PICC catheter was placed over a guidewire. The tip of the catheter was in the cavoatrial junction confirmed with fluoroscopy. The catheter was secured in place with an adhesive device and the percutaneous site was dressed with sterile gauze. The patient tolerated the procedure with no complications. IMPRESSION: PLACEMENT OF A 4-PERUVIAN SINGLE LUMEN PICC CATHETER WITHOUT COMPLICATION.
--- NOTE | 2016-12-12 03:25 | DS ---
DISCHARGE SUMMARY: DATE OF ADMISSION: 12/07/16 DATE OF DISCHARGE: 12/11/16 ATTENDING PHYSICIAN: Dr. Eric Ott* (dictated by YORDY Melton). ADMISSION DIAGNOSES: 1. 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 2. Probable vaginal candidiasis. DISCHARGE DIAGNOSES: 1. 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 2. Probable vaginal candidiasis. SURGERY PERFORMED: Incision and drainage abscess medial tibial metaphysis. HOSPITAL COURSE: The patient is a 41-year-old female who was admitted on with increased right leg pain that had been going on a couple of weeks after feeling that she sprained her ankle. She initially was diagnosed with cellulitis and given clindamycin while her pain continued. She had increased redness, pain, and swelling and was seen in the emergency department where a CT scan revealed a subperiosteal abscess and a soft tissue abscess in the muscle. She was taken to the operating under the care of Dr. Ott on the date of and debrided the bone and abscess. Her lab results revealed Staph aureus positive for MRSA. She was seen by Dr. Sierra who felt that IV vancomycin would be required for 6 to 8 weeks. She had a PICC line placed in Interventional Radiology as there was some difficulty getting access. She did very well ambulating in her boot and had minimal pain. No fevers or chills throughout her hospital stay. No nausea or vomiting. It was felt that she was medically and orthopedically stable for discharge to home with her PICC line on 12/11/16. CONDITION ON DISCHARGE: Temperature 97.8, pulse 83, respirations 16, O2 sats 100%, blood pressure 141/83. Final skin and soft tissue cultures positive for MRSA. She will be discharged on vancomycin as directed by Dr. Sierra. He would like a goal of the trough to be 15 to 20. He estimates IV antibiotic length to be 6 to 8 weeks in duration. She is not having significant pain. She does not want narcotic pain medications and feels the ibuprofen will be satisfactory to control mild discomfort. She has a boot to use for ambulation. She will follow up with Dr. Ott in the office on 12/14/16, and will follow up with Dr. Sierra as scheduled as well. YORDY MELTON [id number]/[facility] #: [id number] [facility]PITAL CENTERJaron
== END 2016-12-11 15:42 | disposition home or self-care (01) | DRG 479 ==
LOC: ED 10:27 → OR 17:37 → OBSVTOIN 20:02 → SSU 20:02
PROVIDERS: ADMIT Orthopaedic Surgery; ATTEND Orthopaedic Surgery
PROC: 0QBG0ZX Excision of Right Tibia, Open Approach, Diagnostic (ICD-10-PCS; 2016-12-07)
PROC: 0QBG0ZZ Excision of Right Tibia, Open Approach (ICD-10-PCS; principal; 2016-12-07 17:40)
PROC: 05H533Z Insertion of Infusion Device into Right Subclavian Vein, Percutaneous Approach (ICD-10-PCS; 2016-12-10)
DX: M86.061 Acute hematogenous osteomyelitis, right tibia and fibula (principal); B37.3 Candidiasis of vulva and vagina; B95.62 Methicillin resistant Staphylococcus aureus infection as the cause of diseases classified elsewhere; Z79.1 Long term (current) use of non-steroidal anti-inflammatories (NSAID); Z79.899 Other long term (current) drug therapy
CPT/HCPCS: 36415; 36569; 76937; 77001; 80048; 80202; 81025; 82565; 84520; 85025; 85652; 86140; 87040; 87070; 87073; 87077; 87186; 87205; 87640; 87641; 88304; 88311; A9270-GY; G8978-GP-CI; G8979-GP-CI; G8980-GP-CI; J1642; J1650; J1885; J2704; J3010; J3370; Q9967

== ENCOUNTER 2018-08-04 09:56 | Emergency (ER) | payer OTHER ==
[2018-08-04 10:01] VITALS: BP 119/70
--- NOTE | 2018-08-04 10:22 | UC ---
Complaint Female HPI - HPI Summary HPI Summary: She has had only a couple of days of what she describes as her typical bladder infection symptoms. She feels a bubble in her abdomen and then urgency and dysuria. She denies any fever, nausea or back pain. - History Of Current Complaint Chief Complaint: UCGU Stated Complaint: URINARY COMPLAINT Time Seen by Provider: 08/04/18 10:08 Hx Obtained From: Patient Hx Last Menstrual Period: iud Onset/Duration: Sudden Onset Timing: Constant Severity Initially: Mild Severity Currently: Mild Pain Intensity: 2 Character: Burning Aggravating Factor(s): Urination Alleviating Factor(s): Position Associated Signs And Symptoms: Positive: Negative - Allergies/Home Medications Allergies/Adverse Reactions: Allergies Allergy/AdvReac Type Severity Reaction Status Date / Time vancomycin Allergy kidney Verified 08/04/18 10:02 shut down PMH/Surg Hx/FS Hx/Imm Hx Previously Healthy: Yes - Surgical History Surgical History: Yes Surgery Procedure, Year, and Place: appendix. . Kidney stone removal - Family History Known Family History: Negative: Cardiac Disease, Hypertension, Diabetes - Social History Alcohol Use: Rare Substance Use Type: None Smoking Status (MU): Never Smoked Tobacco - Immunization History Most Recent Influenza Vaccination: October 2016 Most Recent Pneumonia Vaccination: Never Review of Systems All Other Systems Reviewed And Are Negative: Yes Genitourinary: Positive: Dysuria, Urgency Physical Exam - Summary Physical Exam Summary: She is nontoxic in appearance stable vital signs. Triage Information Reviewed: Yes Appearance: Well-Appearing Vital Signs: Initial Vital Signs Temp 98.8 F 08/04/18 09:59 Pulse 79 08/04/18 09:59 Resp 17 08/04/18 09:59 BP 119/70 08/04/18 09:59 Pulse Ox 100 08/04/18 09:59 Vital Signs Reviewed: Yes Abdomen Description: Positive: Nontender Complaint Female Dx - Course Course Of Treatment: Her UA suggestive of a cystitis and I will treat her accordingly with Macrodantin and Pyridium. - Differential Dx/Diagnosis Provider Diagnosis: UTI (urinary tract infection) Discharge - Sign-Out/Discharge Documenting (check all that apply): Patient Departure All imaging exams completed and their final reports reviewed: No Studies - Discharge Plan Condition: Stable Disposition: HOME Prescriptions: Nitrofurantoin Macrocrystals* [Macrodantin 100 mg*] 100 mg PO BID #10 cap Phenazopyridine 200 mg (NF) [Pyridium 200 MG tab *] 200 mg PO TID #9 tab Patient Education Materials: Urinary Tract Infection in Women (ED) Referrals: No Primary Care Phys,NOPCP [Primary Care Provider] - - Billing Disposition and Condition Condition: STABLE Disposition: Home
--- NOTE | 2018-08-04 10:27 | UC ---
Complaint Female HPI - History Of Current Complaint Chief Complaint: UCGU Stated Complaint: URINARY COMPLAINT Time Seen by Provider: 08/04/18 10:08 Hx Last Menstrual Period: iud Pain Intensity: 2 - Allergies/Home Medications Allergies/Adverse Reactions: Allergies Allergy/AdvReac Type Severity Reaction Status Date / Time vancomycin Allergy kidney Verified 08/04/18 10:02 shut down PMH/Surg Hx/FS Hx/Imm Hx - Surgical History Surgical History: Yes Surgery Procedure, Year, and Place: appendix. . Kidney stone removal - Family History Known Family History: Negative: Cardiac Disease, Hypertension, Diabetes - Social History Alcohol Use: Rare Substance Use Type: None Smoking Status (MU): Never Smoked Tobacco - Immunization History Most Recent Influenza Vaccination: October 2016 Most Recent Pneumonia Vaccination: Never Physical Exam Vital Signs: Initial Vital Signs Temp 98.8 F 08/04/18 09:59 Pulse 79 08/04/18 09:59 Resp 17 08/04/18 09:59 BP 119/70 08/04/18 09:59 Pulse Ox 100 08/04/18 09:59 Discharge - Sign-Out/Discharge Documenting (check all that apply): Patient Departure All imaging exams completed and their final reports reviewed: No Studies - Discharge Plan Condition: Stable Disposition: HOME Prescriptions: Nitrofurantoin Macrocrystals* [Macrodantin 100 mg*] 100 mg PO BID #10 cap Phenazopyridine 200 mg (NF) [Pyridium 200 MG tab *] 200 mg PO TID #9 tab Referrals: No Primary Care Phys,NOPCP [Primary Care Provider] - - Billing Disposition and Condition Condition: STABLE Disposition: Home
--- NOTE | 2018-08-05 15:41 | UC ---
- Progress Note Progress Note: Urine culture from 08/04/18 showed no growth. Patient was started on Macrodantin. The nursing staff will call and if she is feeling better she may continue the antibiotic for the remaining 4 days however if she prefers she may stop the antibiotic. She is to follow-up with her primary care provider if no improvement Course/Dx - Diagnoses Provider Diagnoses: UTI (urinary tract infection) Discharge - Sign-Out/Discharge Documenting (check all that apply): Post-Discharge Follow Up All imaging exams completed and their final reports reviewed: No Studies - Discharge Plan Condition: Stable Disposition: HOME Prescriptions: Nitrofurantoin Macrocrystals* [Macrodantin 100 mg*] 100 mg PO BID #10 cap Phenazopyridine 200 mg (NF) [Pyridium 200 MG tab *] 200 mg PO TID #9 tab Patient Education Materials: Urinary Tract Infection in Women (ED) Referrals: No Primary Care Phys,NOPCP [Primary Care Provider] - - Billing Disposition and Condition Condition: STABLE Disposition: Home
== END 2018-08-04 10:30 | disposition home or self-care (01) ==
LOC: UCEAST 09:56
DX: N39.0 Urinary tract infection, site not specified (principal); Z88.1 Allergy status to other antibiotic agents
CPT/HCPCS: 81003; 84702; 87086; 99212; G0463